=== PATIENT | female | born 1990 | race Caucasian/White ===

== ENCOUNTER 2019-07-16 10:45 | Inpatient (IN) | payer OTHER, SELFPAY ==
[2019-07-16 11:07] VITALS: BMI 34.8
[2019-07-16] MEDS: Lactated Ringers 1,000 ML 50 ML IV (11:45)
[2019-07-16] MEDS: Nalbuphine 10 MG/ML Ampul IV (12:00)
[2019-07-16 12:19] LABS: Absolute Lymphocyte Count 2.25 X10^3/uL (0.83-4.51); Absolute Neutrophil Count 11.4 X10^3/uL (2.0-7.7); Basophil# 0.03 X10^3/uL; Basophil% 0.2 % (0-1); Eosinophil# 0.04 X10^3/uL; Eosinophils% 0.3 % (0-5); Hematocrit 37.7 % (37-47); Hemoglobin 12.4 g/dL (12.0-15.0); Lymphocyte # 2.25 X10^3/ul (4.0); Lymphocyte % 15.4 % (19-41); Mean Corp Hgb Conc 32.9 g/dL (32-36); Mean Corpuscular Hgb 28.9 pg (27.0-32.0); Mean Corpuscular Volume 87.9 fL (81-99); Mean Platelet Vol. 10.2 fl (6.2-12.0); Monocyte# 0.78 X10^3/uL; Monocyte% 5.3 % (0-10); NRBC Flagged by Analyzer 0 % (0-5); Neutrophil # 11.44 X10^3/uL (2.7-7.7); Neutrophil % 78.5 % (47-70); Platelet Count 291 K/mm3 (150-450); RBC Distribution Width CV 14.2 % (11.6-14.6); RBC Distribution Width SD 44.8 fl (35.1-43.9); Red Blood Count 4.29 M/mm3 (4.2-5.4); White Blood Count 14.6 K/mm3 (4.4-11.0)
--- NOTE | 2019-07-16 13:02 | HP.PCM_ITS ---
- Problem List (1) Post-dates Status: Acute (2) Obesity affecting Status: Acute (3) Active labor at term Status: Acute History Date of Admission: 07/16/19 Final VICKIE: 07/12/19 Final VICKIE Source: US <20 weeks Gestational age: 40 Weeks and 4 Days History of this : This is a 29 year-old, G [1], P [0], at 40 weeks gestational age presented to office for painful contractions every 5 minutes. Was found to be 6cm dilated and in active labor. Sent to L&D for admission. Allergies No Known Allergies Allergy (Verified 07/16/19 11:08) Home Medications: Home Medications Vits [Prenatabs FA ] 1 tab PO DAILY 07/16/19 Smoking Status: Never smoker Number of Fetus(es): 1 NST - FHR Rate Baby A Baseline: 130 Variability:: Minimal Accelerations:: None Decelerations:: None FHR Category:: Category II Uterine Activity:: Every 3 min, moderate to palpation History Past Pregnancies: Past Pregnancies Delivery Date Name GA/Weeks Outcome Route Weight Infant Gender Labor Length Anesthesia Delivery Location Provider FOB Labs: Mom's Problem List Problem Status Onset Code Post-dates Acute O48.0 Obesity affecting Acute O99.210 Vaginal delivery Acute O80 Active labor at term Acute Mom's Labs & Results 07/16/19 07/16/19 07/16/19 11:45 11:45 13:25 WBC 14.6 H RBC 4.29 Hgb 12.4 Hct 37.7 MCV 87.9 MCH 28.9 MCHC 32.9 RDW Std Deviation 44.8 H RDW Coeff of P[place]co 14.2 Plt Count 291 MPV 10.2 Immature Gran % (Auto) 0.300 Neut % (Auto) 78.5 H Lymph % (Auto) 15.4 L [place] % (Auto) 5.3 Eos % (Auto) 0.3 Baso % (Auto) 0.2 Absolute Neuts (auto) 11.4 H Absolute Lymphs (auto) 2.25 Nucleated RBC % 0 PT 12.7 INR 1.0 APTT 26.8 Sodium Potassium Chloride Carbon Dioxide Anion Gap BUN Creatinine Estim Creat Clear Calc Est GFR (MDRD) Af Amer Est GFR (MDRD) Non-Af BUN/Creatinine Ratio Glucose Uric Acid Calcium Total Bilirubin AST ALT Alkaline Phosphatase Total Protein Albumin Globulin Albumin/Globulin Ratio U Random Total Protein Urine Creatinine Protein/Creatinin Ratio Blood Type A POSITIVE Antibody Screen NEGATIVE 07/16/19 07/16/19 07/16/19 13:25 13:25 13:45 WBC RBC Hgb Hct MCV MCH MCHC RDW Std Deviation RDW Coeff of [place] Plt Count MPV Immature Gran % (Auto) Neut % (Auto) Lymph % (Auto) [place] % (Auto) Eos % (Auto) Baso % (Auto) Absolute Neuts (auto) Absolute Lymphs (auto) Nucleated RBC % PT INR APTT Sodium 139 Potassium 3.6 Chloride 109 H Carbon Dioxide 22.0 Anion Gap 8 BUN 6 L Creatinine 0.57 0.58 Estim Creat Clear Calc 128.02 125.81 Est GFR (MDRD) Af Amer 163 158 Est GFR (MDRD) Non-Af 135 131 BUN/Creatinine Ratio 10.3 Glucose 78 Uric Acid 3.7 Calcium 8.6 Total Bilirubin 0.70 AST 16 16 ALT 17 17 Alkaline Phosphatase 157 H Total Protein 6.6 Albumin 2.7 L Globulin 3.9 Albumin/Globulin Ratio 0.7 L U Random Total Protein 9.2 Urine Creatinine 62.30 Protein/Creatinin Ratio 148 Blood Type Antibody Screen Course Did the patient receive Yes care? Labs Blood Type: A RH: POSITIVE RPR/VDRL/Syphilis Nonreactive Rubella status Immune HbSAg Negative Date Done: 12/04/18 Chlamydia Negative Gonorrhea Negative HIV/AIDS Non-Reactive Group B Strep: Negative Current Obstetrical History Gestational Diabetes No Incompetent Cervix No Infertility No IUGR No Macrosomia No Hypertension/Pre-eclampsia No Placenta Previa/Abruption No PTL/PROM No Uterine anomaly No Oligohydramnios No Polyhydramnios No Multiple gestation No Past Medical History Asthma No Diabetes No Hypertension No Heart disease No Mitral valve prolapse No Neurologic/Seizure disorder/ No Migraines Kidney disease No Liver disease No Varicosities No Clotting disorders/Hx of DVT No Thyroid Dysfunction No Other medical diseases No Psychiatric disorders No Major trauma No Abnormal PAP smear No Sleep apnea No Mammogram in the last 2 years No Medications Taken During Dose/Freq.: [PNV] 1 tab daily Last Date/Time of Medication 07/15/19 2200 Taken: [PNV] Social History Marital Status: Alleged father Brandon Hx Smoking No Smoking Status Never smoker Expected Delivery Method: Spontaneous Vaginal Review of Systems Constitutional: Denies: Chills, Fever, Weight Change HEENT: Denies: Head Aches, Sinus Congestion, Sinus Drainage Cardiovascular: Denies: Chest Pain, Palpitations Respiratory: Denies: Cough, Shortness of breath at rest, Sputum production Gastrointestinal: Reports: Abdominal Pain. Denies: Nausea, Vomiting Genitourinary: Denies: Dysuria Musculoskeletal: Denies: Joint Pain, Joint Tenderness Neurological: Denies: Numbness, Tingling, Focal weakness Psychiatric: Denies: Anxiety, Depression, Homicidal Ideations, Suicidal Ideat ions Physical Exam General: Alert, Oriented x3, No apparent distress HEENT: Atraumatic, Normocephalic Cardiovascular: Regular rate, Regular Rhythm, No murmurs Lungs: Clear to auscultation, Normal air movement, No rhonchi, No wheeze Abdomen: Gravid Extremities:: No edema Neurological: Deep Tendon Reflexes 2+/4 and Symmetrical. Negative for: Clonus [employer] OPERATIONS SPECIALIST: Normal external genitalia Estimated gestational size: Appropriate for gestational size Presentation: Cephalic Cervix Dilation (cm): 6 - AROM small amount of clear fluid Station: -1 Effacement (%): 80 Assessment/Plan All Active Problems Post-dates (Acute) Obesity affecting (Acute) Vaginal delivery (Acute) Active labor at term (Acute) This is a 29 year-old, G [1], P [0], at 40 weeks gestational age. A:Post date Category 2 FHT Active Labor P: 1) Admit to L&D. IV saline lock. Routine labs. 2) BP mildly elevated in 130's, pre-e labs. CMP, uric acid, CBC, and urine p/c ratio. Asymptomatic and no other signs of pre-e. 3) Nubain effective for pain relief at this time. Would like to avoid epidural if possible. Warm water immersion if desires. 4) NST Category 2 after nubain with minimal variability, will keep continuous EFM at this time. 5) AROM for clear fluid due to minimal change from office exam. Patient consented and tolerated well. 6) notified of patient status and collaborating physician.
[2019-07-16 14:13] LABS: Protein, Urine (Random) 9.2 mg/dL (<11.9); Protein:Creat Ratio 148 mg/g CRE (0-200)
[2019-07-16 14:13] LABS: Partial Thromboplast Time 26.8 Seconds (24.1-36.2); Prothrombin Time (Protime)PT. 12.7 SECONDS (11.7-14.9)
[2019-07-16 14:33] LABS: AST(SGOT) 16 U/L (15-37); Alanine Aminotransfer ALT/SGPT 17 U/L (13-56); Creatinine, Serum 0.57 mg/dL (0.55-1.02); EST Glomerular Filtration Rate 135 mL/min (>60); Est Glom Filt Rate - Afr Amer 163 mL/min (>60); Estimated Creatinine Clearance 128.02 ml/min; Uric Acid 3.7 mg/dL (2.6-6.0)
[2019-07-16 14:34] LABS: ALB/GLOB Ratio 0.7 RATIO (0.9-2.4); AST(SGOT) 16 U/L (15-37); Alanine Aminotransfer ALT/SGPT 17 U/L (13-56); Albumin, Serum 2.7 g/dL (3.2-5.0); Alkaline Phosphatase 157 U/L (45-117); Anion Gap 8 (5-15); BUN 6 mg/dL (7-18); BUN/Creat Ratio 10.3 RATIO (10-20); Calcium,Total 8.6 mg/dL (8.5-10.1); Chloride 109 mmol/L (98-107); Creatinine, Serum 0.58 mg/dL (0.55-1.02); EST Glomerular Filtration Rate 131 mL/min (>60); Est Glom Filt Rate - Afr Amer 158 mL/min (>60); Estimated Creatinine Clearance 125.81 ml/min; Globulin 3.9 g/dL (2.2-4.2); Glucose 78 mg/dL (74-106); Potassium 3.6 mmol/L (3.5-5.1); Protein, Total 6.6 g/dL (6.4-8.2); Sodium Level 139 mmol/L (136-145)
[2019-07-16] MEDS: Lactated Ringers 500 ML 999 ML IV (15:55)
[2019-07-16] MEDS: Oxytocin 30 units/NS 500 ml 30 UNITS/500 ML IV.SOLN 334 UNITS IV (16:40)
--- NOTE | 2019-07-16 17:26 | OP.PCM_ITS ---
Problem List (1) Post-dates Status: Acute (2) Obesity affecting Status: Acute (3) Vaginal delivery Status: Acute Vaginal Delivery Maternal Presentation: Active Labor Amniotic Membrane Rupture Type: Artificial Amniotic Fluid Description: Clear Final VICKIE: 07/12/19 Final VICKIE Source: US <20 weeks Gestational age: 40 Weeks and 4 Days Date of Procedure: 07/16/19 Pre-Operative Diagnosis: active labor Post-Operative Diagnosis: Surgery/ Procedure Performed: Spontaneous Vaginal Delivery Type of Anesthesia: Local with 1% lidocaine Description of Procedure: Progressed to complete with strong urge to push. Nitrous effective for pain management. of viable male over 1st degree vaginal laceration. AP GARS 8,9. Infant head delivered with body forthcoming. Placed on maternal abdomen. Mouth and nares suctioned for secretions, spontaneous cry. Pitocin started for active 3rd management. Placenta delivered with gentle cord traction/counter pressure, intact, 3 vessel cord via hermila. Perineum inspected and revealed 1st degree vaginal laceration. Repaired with 3.0vicryl, 1% lidocaine and nitrous oxide. Well approximated and hemostasis achieved. Patient tolerated well. Fundus firm, EBL 400ml. Vaginal sweep completed, sponge and instrument count correct. Planning to breastfeed. Mom and baby stable. Family bonding well. notified of delivery and patient status. Presentation: Vertex Placental Delivery Description: Spontaneous Placenta Disposition: [facility] Cord Vessel Description: 3 Vessels Cord Entanglement: None Estimated Blood Loss: 400 ml A gender: Male (1 minute): 8 (5 minute): 9 Episiotomy Description: None Laceration: Vaginal Extension/lac, 1st degree Medications given after delivery: IV Pitocin Complications: None
[2019-07-16 19:45] VITALS: BP 138/86; PULSE 104; RESP 16; TEMP 37.1
[2019-07-16] MEDS: Acetaminophen 500 MG Tablet 1000 MG PO (20:19)
[2019-07-16 23:44] VITALS: BP 128/69; PULSE 96; RESP 15; TEMP 37
[2019-07-17 04:00] VITALS: BP 128/79; PULSE 88; RESP 18; TEMP 36.7
[2019-07-17 05:42] LABS: Hemoglobin 9.4 g/dL (12.0-15.0); Mean Corp Hgb Conc 32.4 g/dL (32-36); Mean Corpuscular Hgb 28.5 pg (27.0-32.0); Mean Corpuscular Volume 87.9 fL (81-99); Mean Platelet Vol. 9.8 fl (6.2-12.0); Platelet Count 224 K/mm3 (150-450); RBC Distribution Width CV 14.2 % (11.6-14.6)
[2019-07-17] MEDS: Acetaminophen 500 MG Tablet 1000 MG PO ×2 (06:17→15:58)
[2019-07-17 09:18] VITALS: BP 120/82; PULSE 81; RESP 16; TEMP 36.6
--- NOTE | 2019-07-17 11:27 | PCM.PN.OB ---
Patient Problems: Active and Suspected Problems Post-dates (Acute) Obesity affecting (Acute) Vaginal delivery (Acute) Active labor at term (Acute) Subjective: Doing well per patient and nursing staff. Ambulating and taking PO without difficulty. Voiding and passing flatus. Denies headache, vision changes, chest pain, shortness of breath, or leg pain. No increased bleeding or clots. Pain controlled with tylenol and motrin. going well. Planning D/C home tomorrow. - Physical Exam General: Alert, Oriented x3, Cooperative HEENT: Atraumatic, Normocephalic Neck: Trachea Midline Lungs: Clear to auscultation, Normal air movement Cardiovascular: Regular rate, Regular Rhythm, No murmurs Abdomen: Non Tender, - - Fundus firm 2 below U Extremities: No edema Psych/Mental Status: Normal Affect, Appropriate Vital Signs Temp Pulse Resp BP 97.8 F 81 16 120/82 H 07/17/19 09:18 07/17/19 09:18 07/17/19 09:18 07/17/19 09:18 Weight: 202 lb 12.8 oz Body Mass Index (BMI) 34.8 Intake and Output for Last 24 Hours 07/15/19 07/16/19 07/17/19 23:59 23:59 23:59 Intake Total 1795.83 / 1795.83 Output Total 950 / 950 Balance 845.83 / 845.83 Laboratory Tests Past 24 Hrs 07/16/19 07/16/19 07/16/19 11:45 11:45 13:25 WBC 14.6 H RBC 4.29 Hgb 12.4 Hct 37.7 MCV 87.9 MCH 28.9 MCHC 32.9 RDW Std Deviation 44.8 H RDW Coeff of [place] 14.2 Plt Count 291 MPV 10.2 Immature Gran % (Auto) 0.300 Neut % (Auto) 78.5 H Lymph % (Auto) 15.4 L [place] % (Auto) 5.3 Eos % (Auto) 0.3 Baso % (Auto) 0.2 Absolute Neuts (auto) 11.4 H Absolute Lymphs (auto) 2.25 Nucleated RBC % 0 PT 12.7 INR 1.0 APTT 26.8 Sodium Potassium Chloride Carbon Dioxide Anion Gap BUN Creatinine Estim Creat Clear Calc Est GFR (MDRD) Af Amer Est GFR (MDRD) Non-Af BUN/Creatinine Ratio Glucose Uric Acid Calcium Total Bilirubin AST ALT Alkaline Phosphatase Total Protein Albumin Globulin Albumin/Globulin Ratio U Random Total Protein Urine Creatinine Protein/Creatinin Ratio Blood Type A POSITIVE Antibody Screen NEGATIVE 07/16/19 07/16/19 07/16/19 13:25 13:25 13:45 WBC RBC Hgb Hct MCV MCH MCHC RDW Std Deviation RDW Coeff of [place] Plt Count MPV Immature Gran % (Auto) Neut % (Auto) Lymph % (Auto) [place] % (Auto) Eos % (Auto) Baso % (Auto) Absolute Neuts (auto) Absolute Lymphs (auto) Nucleated RBC % PT INR APTT Sodium 139 Potassium 3.6 Chloride 109 H Carbon Dioxide 22.0 Anion Gap 8 BUN 6 L Creatinine 0.57 0.58 Estim Creat Clear Calc 128.02 125.81 Est GFR (MDRD) Af Amer 163 158 Est GFR (MDRD) Non-Af 135 131 BUN/Creatinine Ratio 10.3 Glucose 78 Uric Acid 3.7 Calcium 8.6 Total Bilirubin 0.70 AST 16 16 ALT 17 17 Alkaline Phosphatase 157 H Total Protein 6.6 Albumin 2.7 L Globulin 3.9 Albumin/Globulin Ratio 0.7 L U Random Total Protein 9.2 Urine Creatinine 62.30 Protein/Creatinin Ratio 148 Blood Type Antibody Screen 07/17/19 05:30 WBC 16.0 H RBC 3.30 L Hgb 9.4 L Hct 29.0 L MCV 87.9 MCH 28.5 MCHC 32.4 RDW Std Deviation 45.0 H RDW Coeff of [place] 14.2 Plt Count 224 MPV 9.8 Immature Gran % (Auto) Neut % (Auto) Lymph % (Auto) [place] % (Auto) Eos % (Auto) Baso % (Auto) Absolute Neuts (auto) Absolute Lymphs (auto) Nucleated RBC % PT INR APTT Sodium Potassium Chloride Carbon Dioxide Anion Gap BUN Creatinine Estim Creat Clear Calc Est GFR (MDRD) Af Amer Est GFR (MDRD) Non-Af BUN/Creatinine Ratio Glucose Uric Acid Calcium Total Bilirubin AST ALT Alkaline Phosphatase Total Protein Albumin Globulin Albumin/Globulin Ratio U Random Total Protein Urine Creatinine Protein/Creatinin Ratio Blood Type Antibody Screen Medical Necessity - Tobacco Use Smoking Status: Never smoker Assessment/Plan All Active Problems Post-dates (Acute) Obesity affecting (Acute) Vaginal delivery (Acute) Active labor at term (Acute) A:PPD #1 Blood loss anemia P: 1) Routine care 2) Blood loss anemia. Hgb 12.4 to 9.4 Start ferrous sulfate 325mg PO BID. Will repeat CBC in am. Asymptomatic 3) Planning D/C home tomorrow.
[2019-07-17] MEDS: Ibuprofen 600 MG Tablet PO ×2 (11:50→19:58)
[2019-07-17] MEDS: Ferrous Sulfate 325 MG Tablet PO ×2 (11:50→18:56)
[2019-07-17 16:01] VITALS: BP 120/72; PULSE 97; RESP 16; TEMP 36.6
[2019-07-17 20:32] VITALS: BP 116/74; PULSE 99; RESP 16; TEMP 36.1
[2019-07-18] MEDS: Acetaminophen 500 MG Tablet 1000 MG PO (00:45)
[2019-07-18 01:25] VITALS: BP 136/63; PULSE 103; RESP 16; TEMP 37.1
[2019-07-18 04:53] LABS: Absolute Lymphocyte Count 1.88 X10^3/uL (0.83-4.51); Absolute Neutrophil Count 12.2 X10^3/uL (2.0-7.7); Basophil# 0.02 X10^3/uL; Basophil% 0.1 % (0-1); Eosinophil# 0.07 X10^3/uL; Eosinophils% 0.5 % (0-5); Hematocrit 28.2 % (37-47); Hemoglobin 9.1 g/dL (12.0-15.0); Lymphocyte # 1.88 X10^3/ul (4.0); Lymphocyte % 12.3 % (19-41); Mean Corp Hgb Conc 32.3 g/dL (32-36); Mean Corpuscular Hgb 28.6 pg (27.0-32.0); Mean Corpuscular Volume 88.7 fL (81-99); Mean Platelet Vol. 9.5 fl (6.2-12.0); Monocyte# 1.11 X10^3/uL; Monocyte% 7.2 % (0-10); NRBC Flagged by Analyzer 0 % (0-5); Neutrophil # 12.19 X10^3/uL (2.7-7.7); Neutrophil % 79.5 % (47-70); Platelet Count 214 K/mm3 (150-450); RBC Distribution Width CV 14.5 % (11.6-14.6); RBC Distribution Width SD 46.6 fl (35.1-43.9); Red Blood Count 3.18 M/mm3 (4.2-5.4); White Blood Count 15.3 K/mm3 (4.4-11.0)
[2019-07-18] MEDS: Ibuprofen 600 MG Tablet PO (06:02)
[2019-07-18 09:45] VITALS: BP 122/75; PULSE 96; RESP 18; TEMP 36.4
--- NOTE | 2019-07-18 09:46 | NURSING ---
labial edema noted, right >Left, but both soft to touch. Ice packs and tucks encouraged
--- NOTE | 2019-07-18 11:17 | PCM.PN.OB ---
Patient Problems: Active and Suspected Problems Post-dates (Acute) Obesity affecting (Acute) Vaginal delivery (Acute) Active labor at term (Acute) Subjective: Doing well per patient and nursing staff. Ambulating and taking PO without difficulty. Voiding and passing flatus. without difficulty. Pain controlled by ibuprofen. Planning D/C home today. - Physical Exam General: Alert, Oriented x3, Cooperative HEENT: Atraumatic, Normocephalic Neck: Trachea Midline Lungs: Clear to auscultation, Normal air movement, No rhonchi, No wheeze Cardiovascular: Regular rate, Normal S1 Abdomen: Bowel Sounds Present, - - Fundus firm 2 below U Extremities: No edema Psych/Mental Status: Normal Affect, Appropriate Vital Signs Temp Pulse Resp BP 97.6 F L 96 18 122/75 H 07/18/19 09:45 07/18/19 09:45 07/18/19 09:45 07/18/19 09:45 Oxygen Delivery Method Room Air Weight: 202 lb 12.8 oz Body Mass Index (BMI) 34.8 Intake and Output for Last 24 Hours 07/16/19 07/17/19 07/18/19 23:59 23:59 23:59 Intake Total 1795.83 / 1795.83 500 / 500 Output Total 950 / 950 Balance 845.83 / 845.83 500 / 500 Laboratory Tests Past 24 Hrs 07/18/19 04:40 WBC 15.3 H RBC 3.18 L Hgb 9.1 L Hct 28.2 L MCV 88.7 MCH 28.6 MCHC 32.3 RDW Std Deviation 46.6 H RDW Coeff of [place] 14.5 Plt Count 214 MPV 9.5 Immature Gran % (Auto) 0.400 Neut % (Auto) 79.5 H Lymph % (Auto) 12.3 L [place] % (Auto) 7.2 Eos % (Auto) 0.5 Baso % (Auto) 0.1 Absolute Neuts (auto) 12.2 H Absolute Lymphs (auto) 1.88 Nucleated RBC % 0 Medical Necessity - Tobacco Use Smoking Status: Never smoker Assessment/Plan All Active Problems Post-dates (Acute) Obesity affecting (Acute) Vaginal delivery (Acute) Active labor at term (Acute) A:PPD #2 P: 1) Routine care and discharge instructions given. 2) instructions reviewed. 3) Follow up in 2 weeks and 6 weeks . 4) Few elevated BP will follow up this week for BP check
--- NOTE | 2019-07-18 11:36 | DCINST_ITS ---
Discharge Diet: No Restrictions Discharge Activity: Return to Normal Activity, May Drive, May Shower, May Take a Tub Bath May resume sexual activity in: 4-6 weeks Weight Bearing Status: Full weight bearing Additional Activity Instructions:: Nothing in the vagina for 4-6 weeks. You may return to work/school in 6 weeks. Call your doctor if your incision/area has: Continuous Slow Oozing, Sudden Increased Bleeding, Increased Pain/ Swelling, Increased Redness, Foul Smelling Discharge Call your doctor if you observe: Fever of 101 or Higher, Inability to urinate, Inability to have a bowel movement, Using more than one pad per hour, Shortness of breath, Chest pain, Increased palpitations (irregular heartbeat), Calf discomfort, Uncontrolled pain Additional Instructions: If you experience any of the following, contact your healthcare provider. * Bleeding that soaks a pad every hour for 2 hours * Fever 100.4 or higher * Unrelieved incision or abdominal pain * Swelling, redness, discharge or bleeding from your incision or episiotomy site * Your incision begins to separate * Problems urinating (including inability to urinate or burning while urinating). * Visual changes * Severe headache * Flu-like symptoms * Pain or redness in one of both of your breasts * Pain, warmth, tenderness or swelling in your legs, especially the calf area * Frequent nausea and vomiting * Symptoms of depression or anxiety If you experience any of the following, call 911 or go to the nearest Emergency Room. * Chest pain * Problems breathing * Seizure activity * Partial or complete paralysis of a body part, slurred speech, weakness or drooping of the face, or a sudden inability to walk or hold your balance Allergies/Adverse Reactions: Allergies No Known Allergies Allergy (Verified 07/16/19 11:08) Medications to take at Discharge Vits [Prenatabs FA ] 1 tab PO DAILY 07/16/19 Ferrous Sulfate 325 mg PO 1200,1700 tab 07/18/19 Ibuprofen [Motrin] 600 mg PO Q6H PRN PRN tab 07/18/19 Please Follow Up With: Bindu Loomis CNM When: Call to make an appointment with your doctor in 2 weeks and 6 weeks. Follow up this week for nurse visit BP check. Primary Care Physician: Isidoro Preston [Primary Care Provider] - Test Results: Test results from this visit will be discussed in further detail at your follow- up appointment, if applicable.
== END 2019-07-18 13:40 | disposition home or self-care (01) | DRG 807 ==
PROVIDERS: Admitting Provider Advanced Practice Midwife; Family Provider Student in an Organized Health Care Education/Training Program; PCP Student in an Organized Health Care Education/Training Program; Referring Provider Student in an Organized Health Care Education/Training Program; Visit Provider Advanced Practice Midwife
DX: O70.0 First degree perineal laceration during delivery (principal); Z37.0 Single live birth; O48.0 Post-term pregnancy; O99.214 Obesity complicating childbirth; E66.9 Obesity, unspecified; D50.0 Iron deficiency anemia secondary to blood loss (chronic); O99.02 Anemia complicating childbirth; Z3A.40 40 weeks gestation of pregnancy
CPT/HCPCS: 59025; 59050; 80053; 82565; 82570; 84156; 84450; 84460; 84550; 85025; 85027; 85610; 85730; 86850; 86900; 86901; 99218; J7120; G0378

== ENCOUNTER 2022-04-10 01:50 | Inpatient (IN) | payer OTHER, SELFPAY ==
[2022-04-10] VITALS (33 sets, daily range): BP systolic 106–159; BP diastolic 55–87; PULSE 82–113; RESP 16–17; TEMP 36.3–36.8; O2SAT 96–100; BMI 37.1
[2022-04-10] MEDS: Lactated Ringers 1,000 ML 50 ML IV (02:10)
[2022-04-10] MEDS: LACTATED RINGERS 500 ML 999 ML IV (02:11)
[2022-04-10 02:26] LABS: Absolute Lymphocyte Count 2.28 X10^3/uL (0.83-4.51); Absolute Neutrophil Count 9.9 X10^3/uL (2.0-7.7); Basophil# 0.04 X10^3/uL; Basophil% 0.3 % (0-1); Eosinophil# 0.05 X10^3/uL; Eosinophils% 0.4 % (0-5); Hemoglobin 11.5 g/dL (12.0-15.0); Lymphocyte # 2.28 X10^3/ul (0.83-4.51); Lymphocyte % 17.2 % (19-41); Mean Corp Hgb Conc 31.9 g/dL (32-36); Mean Corpuscular Hgb 26.9 pg (27.0-32.0); Mean Corpuscular Volume 84.3 fL (81-99); Mean Platelet Vol. 9.7 fl (6.2-12.0); Monocyte# 0.95 X10^3/uL; Monocyte% 7.2 % (0-10); NRBC Flagged by Analyzer 0 % (0-5); Neutrophil # 9.86 X10^3/uL (2.7-7.7); Neutrophil % 74.4 % (47-70); Platelet Count 281 K/mm3 (150-450); RBC Distribution Width CV 14.8 % (11.6-14.6); RBC Distribution Width SD 45.3 fl (35.1-43.9); Red Blood Count 4.27 M/mm3 (4.2-5.4); White Blood Count 13.2 K/mm3 (4.4-11.0)
[2022-04-10] MEDS: fentaNYL-bupivacaine (epidural) 100 ML BAG EPIDURAL (03:37)
[2022-04-10] MEDS: Oxytocin 30 units/NS 500 ml 30 UNITS/500 ML IV.SOLN 334 UNITS IV (04:34)
--- NOTE | 2022-04-10 04:45 | PCM.HP.OB ---
HPI - General General Date of Admission: 04/10/22 HPI Narrative AMPARO HUDSON, is a 32 F at 40.5 weeks gestation who presents in spontaneous labor. She began having contractions earlier this evening that continued to increase in strength and intensity. Denies any loss of fluid or vaginal bleeding. Positive movement. complicated by obesity and GBS in urine. Maternal Data Information Final VICKIE: 04/05/22 Final VICKIE Source: LMP PFSH PFSH Home Medications vits,calcium no.78-iron fumarate-folic acid 29 mg-1 mg tablet 1 tab PO DAILY Check with primary doctor 07/16/19 [History Last Taken 04/09/22 07:00] Allergy/AdvReac Type Severity Reaction Status Date / Time No Known Allergies Allergy Verified 04/10/22 02:04 Surgical History (Updated 04/10/22 @ 02:15 by Roseanna Muñoz) History of tonsillectomy and adenoidectomy Hx of LASIK Social History Smoking Status: Never smoker History Elective abortions Hx Para 1 Spontaneous abortions Hx # Term Pregnancies Ectopic pregnancies Hx # Pregnancies Multiple births # of living children ROS Eyes Eyes: Denies blurry vision, change in vision or spots in vision ENT HEENT: Denies dizziness or headache(s) Cardiovascular Cardiovascular: Denies abdominal pain, chest pain or dyspnea Respiratory/Chest Respiratory/Chest: Denies cough, dyspnea, shortness of breath at rest or shortness of breath with exertion Gastrointestinal Gastrointestinal: Denies abdominal pain, diarrhea or vomiting Genitourinary Genitourinary: Denies change in urinary stream, difficulty urinating or dysuria Musculoskeletal Musculoskeletal: Reports none Integumentary Integumentary: Denies rash Neurologic Neurologic: Denies dizziness, headache(s), memory loss or weakness Psychiatric Psychiatric: Reports none Vital Signs Vital Signs Vital Signs: 04/10/22 01:37 04/10/22 01:37 04/10/22 01:37 Temperature Temperature Source Temporal Pulse Rate 86 Blood Pressure 138/86 H BP Systolic 138 BP Diastolic 86 Pulse Ox 04/10/22 01:37 04/10/22 02:48 04/10/22 02:48 Temperature 97.5 F L Temperature Source Pulse Rate 93 Blood Pressure BP Systolic BP Diastolic Pulse Ox 100 04/10/22 02:53 04/10/22 02:53 04/10/22 02:58 Temperature Temperature Source Pulse Rate 98 105 H Blood Pressure BP Systolic BP Diastolic Pulse Ox 100 04/10/22 02:58 04/10/22 03:03 04/10/22 03:03 Temperature Temperature Source Pulse Rate 99 Blood Pressure BP Systolic BP Diastolic Pulse Ox 100 100 04/10/22 03:06 04/10/22 03:06 04/10/22 03:08 Temperature Temperature Source Pulse Rate 97 113 H Blood Pressure 159/87 H BP Systolic 159 BP Diastolic 87 Pulse Ox 04/10/22 03:08 04/10/22 03:10 04/10/22 03:10 Temperature Temperature Source Pulse Rate 95 Blood Pressure 144/78 H BP Systolic 144 BP Diastolic 78 Pulse Ox 100 04/10/22 03:13 04/10/22 03:13 04/10/22 03:16 Temperature Temperature Source Pulse Rate 94 Blood Pressure 141/73 H BP Systolic 141 BP Diastolic 73 Pulse Ox 100 04/10/22 03:16 04/10/22 03:18 04/10/22 03:18 Temperature Temperature Source Pulse Rate 93 94 Blood Pressure BP Systolic BP Diastolic Pulse Ox 100 04/10/22 03:20 04/10/22 03:20 04/10/22 03:23 Temperature Temperature Source Pulse Rate 103 H 83 Blood Pressure 151/75 H BP Systolic 151 BP Diastolic 75 Pulse Ox 04/10/22 03:23 04/10/22 03:25 04/10/22 03:25 Temperature Temperature Source Pulse Rate 88 Blood Pressure 133/77 H BP Systolic 133 BP Diastolic 77 Pulse Ox 100 04/10/22 03:28 04/10/22 03:28 04/10/22 03:31 Temperature Temperature Source Temporal Pulse Rate 88 Blood Pressure BP Systolic BP Diastolic Pulse Ox 99 04/10/22 03:32 04/10/22 03:32 04/10/22 03:31 Temperature 97.6 F L Temperature Source Pulse Rate 100 Blood Pressure 146/65 H BP Systolic 146 BP Diastolic 65 Pulse Ox 04/10/22 03:36 04/10/22 03:36 04/10/22 03:41 Temperature Temperature Source Pulse Rate 93 Blood Pressure 126/73 H 119/70 BP Systolic 126 119 BP Diastolic 73 70 Pulse Ox 04/10/22 03:41 04/10/22 04:43 04/10/22 04:43 Temperature Temperature Source Pulse Rate 93 100 Blood Pressure 148/83 H BP Systolic 148 BP Diastolic 83 Pulse Ox Weight Weight: 216 lb 6 oz Body Mass Index (BMI) 37.1 Physical Exam Const alert, oriented x3 and no apparent distress General Appearance: cooperative Orientation / Consciousness: awake Exam Limitations: no limitations HEENT normocephalic Head and Scalp: normal to inspection Eyes General Eye: normal appearance of both eyes Neck full ROM and no lymphadenopathy Lymph Lymphatic: no lymphadenopathy noted Chest inspection of chest normal Resp normal respiratory effort, normal air movement and clear to auscultation bilaterally Effort and Inspection: able to speak in complete sentences and symmetric chest movement Cardio regular rate and regular rhythm GI normal to inspection, nondistended, normoactive bowel sounds Manual OB Exam: presentation cephalic Back/Spine normal ROM Extremity full ROM and no calf tenderness Skin no rashes or lesions noted General Skin Exam: no breakdown Neuro oriented x3 and CN's II-XII intact bilaterally Psych mental status grossly normal and thought process normal Labs Labs Labs: Blood Type A POSITIVE Antibody Screen NEGATIVE Hct 36.0 % (37-47) L Hgb 11.5 g/dL (12.0-15.0) L VZV IgG Antibody 1.51 index (Immune >1.09-) Rhogam given: No Rubella- immune HB - neg HC- neg HIV- NR RPR- NR GBS + in urine Assessment & Plan (1) Obesity affecting : (2) Active labor at term: (3) 40 weeks gestation of : PLAN: Plan CE- /-2 Admit to labor and delivery Routine labs Start IV and run fluids per orders GBS + in urine- Start PCN protocol Epidural when indicated Anticipate Dr. Breaux notified of admission and is collaborating physician
--- NOTE | 2022-04-10 05:00 | EX.PCM.OBRPT ---
Assessment & Plan (1) Precipitous delivery: (2) Vaginal delivery: (3) GBS bacteriuria: Maternal Data Information VICKIE Calculator Estimated Delivery Date Method Current WG Current Estimate 04/05/22 Manual 40w 5d Vaginal Delivery Maternal Presentation Maternal Presentation: Active Labor Maternal Presentation: at 40.5 that presents in spontaneous, active labor. Operative Information Date of Procedure: 04/10/22 Pre-Operative Diagnosis: Term gestation, spontaneous onset of labor Post-Operative Diagnosis: Precipitous delivery, live female Surgery / Procedure Performed: Spontaneous Vaginal Delivery Type of Anesthesia: Epidural Estimated Blood Loss: 100 Time of Delivery: 04:33 Findings Description of Procedure: Called to patient's room for complete dilation. Complete dilation +2 station with bulging bag. A.R.O.M for moderate amount of clear fluid. Straight cath completed for 100 cc clear yellow urine. With minimal maternal effort, infant head delivered in MONE position. Loose nuchal cord easily reduced. With next push, anterior shoulder followed by remainder of body delivered. Vigorous female placed on maternal abdomen and was attended to by nursing staff. Pitocin IV was started for active management of the third stage. Cord clamped and cut by FOB after 3 minute delay. Infant placed immediately skin to skin with patient. Placenta delivered spontaneously and intact via [place]. Hemostasis obtained. After inspection it was noted vagina and perineum intact. Fundus firm 2 below U. EBL 100 cc. APGARS 8/9. Patient bonding well with . FOB remains at bedside. Dr. Breaux notified of Presentation: Vertex and MONE Amniotic Membrane Rupture Type: Artificial Time of Membrane Rupture: 0430 Amniotic Fluid Description: Clear Placental Delivery Description: Spontaneous Placenta Disposition: [facility] Cord Vessel Description: 3 Vessels Cord Entanglement: Around neck x 1, loose Nuchal Cord Compression: Without compression A Gender: Female (1 minute): 8 (5 minute): 9 Delayed Cord Clamping: Yes Post Vaginal Delivery Medications Given After Delivery: IV Pitocin Episiotomy Description: None Laceration: None Complication Complications: None
[2022-04-10] MEDS: 0.9% Saline Lock 10 ML Syringe IV (07:28)
[2022-04-10] MEDS: Acetaminophen 500 MG Tablet 1000 MG PO ×2 (07:48→21:14)
[2022-04-11 01:17] VITALS: BP 116/66; PULSE 82; RESP 16; TEMP 36.7
[2022-04-11 04:25] VITALS: BP 109/66; PULSE 82; RESP 14; TEMP 36.7
[2022-04-11 07:55] VITALS: BP 133/82; PULSE 86; RESP 16; TEMP 36.7; O2SAT 96
--- NOTE | 2022-04-11 09:19 | DCINST_ITS ---
Discharge Instructions Diet Discharge Diet: No restrictions Activity Discharge Activity: May Drive and May Shower May resume sexual activity in: 6 weeks Ice area for (Minutes): 15 Weight Bearing Status: Weight bearing as tolerated Dressing / Incision Call your doctor if you observe: Fever of 101 or Higher, Coldness, Increased Pain, Numbness or Tingling, Change in Color, Inability to urinate, Inability to have a bowel movement, Using more than 1 pad per hour, Shortness of breath, Dizziness, Fainting spells, Swelling in the ankles, Chest pain, Increased palpitations (irregular heartbeat), Calf discomfort and Uncontrolled pain Cleanse incision/area with: Soap & Water Follow Up Care When: 1-2 weeks for early visit if you desire (can be virtual) 6 week visit in office Test Results: Test results from this visit will be discussed in further detail at your follow- up appointment, if applicable. Discharge Plan Admission Admit Date/Time: 04/10/22 01:50 Primary Reason for Your Visit: delivery Attending Provider: Bethany Jennings Primary Care Provider: Isidoro Preston Instructions Patient Instructions: After a Vaginal Discharge Orders/Prescriptions Prescriptions: New ibuprofen 600 mg tablet 600 mg PO Q6H PRN (Reason: pain) Qty: 30 0RF Continued vit,[id number] 1 TABLET tablet 1 tab PO DAILY Referrals / Follow Up: Isidoro Preston [Primary Care Provider] - Disposition Disposition (needs filled in before D/C Order can be placed): Home, Self Care
--- NOTE | 2022-04-11 09:20 | PN.OBGYN_ITS ---
Subjective Subjective Pt is doing well. Pain is well controlled. Lochia is normal. She is breast- feeding without complaints. She denies chest pain, shortness of breath, leg pain, lightheadedness, dizziness. She desires to go home today. Objective Data Objective Data Vital Signs: Vital Signs Temp Pulse Resp BP Pulse Ox 98.1 F 82 14 109/66 96 04/11/22 04:25 04/11/22 04:25 04/11/22 04:25 04/11/22 04:25 04/10/22 07:25 Oxygen Delivery Method Room Air Weight: 216 lb 6 oz Body Mass Index (BMI) 37.1 Intake & Output: Intake and Output for Last 24 Hours 04/09/22 04/10/22 04/11/22 23:59 23:59 23:59 Intake Total 1551.67 / 1551.67 Output Total 550 / 550 Balance 1001.67 / 1001.67 Lab / Micro Data Result Diagrams: 04/10/22 02:10 Micro: Microbiology 04/10/22 02:10 Nasal Secretion SARS-CoV-2 Antigen (Rapid) - Final Physical Exam Const alert and no apparent distress Constitutional Narrative: Currently infant General Appearance: comfortable Assessment & Plan (1) Vaginal delivery: PLAN: Pt is day 1 from a vaginal delivery. She is doing well. She desires discharge. Discharge instructions reviewed.
[2022-04-11 14:14] VITALS: BP 136/87; PULSE 102; RESP 16; TEMP 36.4; O2SAT 97
== END 2022-04-11 16:45 | disposition home or self-care (01) | DRG 807 ==
LOC: WPOUT 02:00 → WP 02:00
PROVIDERS: Admitting Provider Advanced Practice Midwife; PCP Student in an Organized Health Care Education/Training Program; Visit Provider Advanced Practice Midwife
DX: O48.0 Post-term pregnancy (principal); Z37.0 Single live birth; E66.9 Obesity, unspecified; O69.81X0 Labor and delivery complicated by cord around neck, without compression, not applicable or unspecified; O62.3 Precipitate labor; O99.214 Obesity complicating childbirth; O99.824 Streptococcus B carrier state complicating childbirth; R82.71 Bacteriuria; Z3A.40 40 weeks gestation of pregnancy; O99.892 Other specified diseases and conditions complicating childbirth
CPT/HCPCS: 59025; 59050; 85025; 86850; 86900; 86901; 87426; 99218; J7120; A4216; G0378